=== PATIENT | female | born 1940 | race Caucasian/White ===

== ENCOUNTER → 2025-01-23 08:38 | Outpatient (REF) | payer MEDICARE, SELFPAY ==
[2025-01-23 09:15] VITALS: BP 152/71; BP_SYST 75
[2025-01-23] MEDS: ATIVAN 0.5 MG PO (09:16)
[2025-01-23 09:20] LABS: Hematocrit 30.4 % (37.0-47.0); Hemoglobin 10.3 g/dL (12.0-16.0); Mean Corp Hgb Conc. 33.9 g/dL (33.0-37.0); Mean Corpuscular Volume 110.1 fL (81.0-99.0); Nucleated Red Blood Cells % 0.8 %; Platelet Count 367 10^3/uL (130-400); Red Cell Dist. Width 17.5 % (11.5-14.5)
[2025-01-23 09:21] LABS: INR 1.08; PT 14.3 Sec (11.4-14.6)
[2025-01-23 11:30] VITALS: BP 143/72; BP_SYST 75
== END ==
LOC: RADI 08:38
PROVIDERS: ATTENDING PHYSICIAN Internal Medicine Hematology & Oncology; FAMILY PHYSICIAN Family Medicine; REFERRING PHYSICIAN Physician Assistant
DX: D53.9 Nutritional anemia, unspecified (principal); D68.8 Other specified coagulation defects; D75.89 Other specified diseases of blood and blood-forming organs
CPT/HCPCS: 36415; 38222; 77012; 85025; 85610; 88305; 88311; 88312; 88313